=== PATIENT | female | born 1960 | race Caucasian/White ===

== ENCOUNTER 2018-06-03 18:14 | Emergency (ER) | payer BC ==
[2018-06-03] MEDS ORDERED: KETOROLAC 30 MG/ML INJ ONE (18:52)
[2018-06-03] MEDS ORDERED: NA CHLORIDE 0.9% 1,000 ML ONE (18:53)
[2018-06-03] MEDS ORDERED: ONDANSETRON 4 MG/2 ML VIAL ONE (18:53)
[2018-06-03] MEDS ORDERED: DIPHENHYDRAMINE 50 MG/ML VIAL ONE (19:29)
[2018-06-03] MEDS ORDERED: NA CHLORIDE 0.9% 100 ML IV ONE (19:29)
[2018-06-03] MEDS ORDERED: METOCLOPRAMIDE 10 MG/2mL INJ ONE (19:29)
--- NOTE | 2018-06-03 20:05 | RAD REPORT ---
EXAM DESCRIPTION: RAD - Chest Single View - 06/03/2018 7:58 pm CLINICAL HISTORY: Chest pain COMPARISON: None. TECHNIQUE: AP portable chest image was obtained 1948 hours . FINDINGS: Lungs are clear. Heart and vasculature are normal. No measurable pleural effusion and no p neumothorax. No acute bony abnormality seen. No acute aortic findings suspected. IMPRESSION: No acute cardiopulmonary process.
[2018-06-03 20:31] LABS: Absolute Lymphocytes (CBC) 1.8 K/uL (0.7-4.9); Absolute Monocytes 0.7 K/uL (0.1-1.3); Absolute Neutrophil 7.3 K/uL (1.8-8.0); Basophils % 0.4 % (0-1.3); Eosinophils % 1.5 % (0-4.4); Hematocrit 44.9 % (36.0-45.0); Lymphocytes % 17.7 % (15.3-44.8); MCH 31.5 pg (27.0-35.0); MCV 91.3 fL (80-100); MPV 8.4 fL (7.6-11.3); Monocytes % 6.7 % (3.3-12.3); Protime INR 1.03; RBC Red Blood Cell Count 4.92 M/uL (3.86-4.86)
[2018-06-03 20:44] LABS: ALT/SGPT 27 U/L (12-78); AST/SGOT 14 U/L (15-37); Albumin 4.1 g/dL (3.4-5.0); Alkaline Phosphatase 80 U/L (45-117); BUN Blood Urea Nitrogen 10 mg/dL (7-18); Bicarbonate 26 mmol/L (21-32); Bilirubin Direct 0.1 mg/dL (0-0.2); Bilirubin Total 0.9 mg/dL (0.2-1.0); C-Reactive Protein < 2.90 mg/L (<3.00); Glucose Level 82 mg/dL (74-106); Magnesium 2.2 mg/dL (1.8-2.4); NT PRO-BNP 58 pg/mL (<125); Potassium 3.6 mmol/L (3.5-5.1); Protein, Total 7.6 g/dL (6.4-8.2); Sodium Level 137 mmol/L (136-145); Thyroid Stimulating Hormone 0.443 uIU/mL (0.360-3.740); Troponin (Emerg Dept Use Only) < 0.02 ng/mL (0.0-0.045)
--- NOTE | 2018-06-03 21:31 | RAD REPORT ---
EXAM DESCRIPTION: CT - Head angio - 06/03/2018 9:12 pm CLINICAL HISTORY: Blurred vision, left-sided ear and head pain TECHNIQUE: During dynamic enhancement using nonionic IV contrast, axial 1 millimeter thick images of the head were obtained. Sagittal and axial reconstruction images were generated and reviewed. Axial 5 millimeter thick noncontrast images also obtained. All CT scans are performed using dose optimization technique as appropriate and may include automated exposure control or mA/KV adjustment according to patient size. FINDINGS: Noncontrast imaging shows no intracranial hemorrhage, mass, edema or shift of midline str uctures. Ventricles are normal. No cortical edema or sulcal effacement. Patient does have some scatte red areas of diminished attenuation in the cerebral white matter. In the right occipital lobe white m atter there is diminished attenuation that is consistent with an ischemic injury of unknown age. In t his location, patient could have homonymous hemianopia. Correlation is needed with full visual field examination. Major venous sinuses are patent. No significant stenosis, named branch occlusion, vasculitis or other significant vascular finding ashley ntifiable. No aneurysm or vascular malformation seen. IMPRESSION: No hemorrhage or acute cortical based infarction identified. Decreased attenuation in the right occipital lobe white matter could be an acute lesion given the vis ual symptoms. In this location this could the generate a homonymous hemianopia. Correlation is needed with visual field deficits. CT angio head imaging shows no significant finding.
[2018-06-03] MEDS ORDERED: ASPIRIN 81 MG CHEWABLE TABLET ONE (21:56)
[2018-06-03] MEDS ORDERED: FOLIC ACID 5 MG/ML VIAL ONE (21:57)
[2018-06-03] MEDS ORDERED: NA CHLORIDE 0.9% 50 ML IV ONE (21:57)
--- NOTE | 2018-06-03 22:56 | ER ---
Nurse's Notes [facility] Name: Addis Ruvalcaba Age: 58 yrs Sex: Female : 1960 Arrival Date: 06/03/2018 Time: 18:19 Bed 30 Private MD: Diagnosis: CVA Presentation: 06/03 18:21 Presenting complaint: Patient states: Left ear pain since this morning, now having la1 blurry vision in both eyes and back pain in the back of the scalp. Transition of care: patient was not received from another setting of care. Onset of symptoms was June 03, 2018. Risk Assessment: Do you want to hurt yourself or someone else? Patient reports no desire to harm self or others. Initial Sepsis Screen: Does the patient meet any 2 criteria? No. Patient's initial sepsis screen is negative. Does the patient have a suspected source of infection? No. Patient's initial sepsis screen is negative. Care prior to arrival: None. 18:21 Method Of Arrival: Ambulatory la1 18:21 Acuity: ALLA 2 la1 Triage Assessment: 20:50 Headache History: Denies prior headaches. General: Appears in no apparent distress. mg2 comfortable, Behavior is calm, cooperative. Pain: Pain currently is 0 out of 10 on a pain scale. Pain began gradually, Also complains of nausea. Historical: - Allergies: 18:21 Sulfa (Sulfonamide Antibiotics); la1 - PMHx: 18:21 Hypothyroidism; la1 - Immunization history:: Adult Immunizations up to date. - Social history:: Smoking status: Patient uses tobacco products, smokes one-half pack cigarettes per day. - Ebola Screening: : No symptoms or risks identified at this time. - Family history:: not pertinent. Screenin:50 Abuse screen: Denies threats or abuse. Denies injuries from another. Nutritional mg2 screening: No deficits noted. Tuberculosis screening:. Fall Risk IV access (20 points). Assessment: 20:49 Pain: Complains of pain in forehead. Neuro: Level of Consciousness is awake, alert, mg2 obeys commands, Oriented to person, place, time, situation, Reports blurred vision headache. Cardiovascular: Capillary refill < 3 seconds Patient's skin is warm and dry. Respiratory: Airway is patent Respiratory effort is even, unlabored, Respiratory pattern is regular, symmetrical. GI: No signs and/or symptoms were reported involving the gastrointestinal system. : No deficits noted. EENT: No deficits noted. Derm: Skin is intact, is healthy with good turgor, Skin is pink, warm \T\ dry. normal. Musculoskeletal: No signs and/or symptoms reported regarding the musculoskeletal system. 21:06 Reassessment: patient sent to ct scan. mg2 06/04 00:23 Reassessment: Patient appears in no apparent distress at this time. mg2 Vital Signs: 06/03 18:20 BP 171 / 102; Pulse 90; Resp 16; Temp 98.0; Pulse Ox 100% on R/A; Weight 25.4 kg; Pain la1 8/10; 19:33 BP 148 / 84; Pulse 90; Resp 18; Pulse Ox 100% on R/A; Pain 3/10; mg2 20:48 BP 125 / 84; Pulse 89; Resp 18; Pulse Ox 100% on R/A; Pain 0/10; mg2 22:06 BP 151 / 82; Pulse 90; Resp 18; Pulse Ox 100% on R/A; Pain 3/10; mg2 23:04 BP 117 / 61; Pulse 69; Resp 18; Pulse Ox 95% on R/A; Pain 0/10; mg2 ED Course: 18:19 Patient arrived in ED. sb2 18:21 Arm band placed on left wrist. la1 18:22 Triage completed. la1 18:33 Salas Kowalski MD is Attending Physician. zoë 18:42 EKG done, by ED staff, reviewed by Salas Kowalski MD. Initial lab(s) drawn, by nd. jb1 Inserted saline lock: 22 gauge in right antecubital area, using aseptic technique. Blood collected. 18:43 Jesús Bagley, JARON is Primary Nurse. mg2 19:40 Seth Ocampo PA is PHCP. jmm 20:00 Chest Single View In Process Unspecified. EDMS 20:50 Patient has correct armband on for positive identification. mg2 20:50 No provider procedures requiring assistance completed. mg2 21:10 CT completed. Patient moved to CT via wheelchair. Patient moved back from CT. cw1 22:10 Ultrasound completed. Patient tolerated well. sg3 06/04 00:23 Patient transferred, IV remains in place. mg2 Administered Medications: 06/03 19:16 Drug: TORadol 30 mg Route: IVP; Site: right forearm; mg2 22:05 Follow up: Response: No adverse reaction; Marked relief of symptoms mg2 19:16 Drug: Zofran 4 mg Route: IVP; Site: right forearm; mg2 22:05 Follow up: Response: No adverse reaction; Marked relief of symptoms mg2 19:17 Drug: NS 0.9% 1000 ml Route: IV; Rate: 1 bolus; Site: right forearm; mg2 22:05 Follow up: Response: No adverse reaction; IV Status: Completed infusion mg2 19:32 Drug: Reglan 10 mg Route: IVP; Site: right forearm; mg2 22:05 Follow up: Response: No adverse reaction; Marked relief of symptoms mg2 19:32 Drug: Benadryl 25 mg Route: IVP; Site: right forearm; mg2 22:05 Follow up: Response: No adverse reaction; Marked relief of symptoms mg2 22:04 Drug: foLIC Acid 1 mg Route: IVPB; Site: right antecubital; mg2 23:05 Follow up: Response: No adverse reaction; IV Status: Completed infusion mg2 22:04 Drug: Aspirin Chewable Tablet 324 mg Route: PO; mg2 23:05 Follow up: Response: No adverse reaction; Marked relief of symptoms mg2 Outcome: 22:56 ER care complete, transfer ordered by MD. dubois 06/04 00:23 Transferred by ground EMS to [facility], Transfer form completed. mg2 Condition: stable Instructed on the need for transfer, Demonstrated understanding of instructions. 00:24 Patient left the ED. mg2 Signatures: Dispatcher [employer] EDMS Tim Moreno jb1 Salas Kowalski MD MD cha Mickail, Joel, PA PA Brandi Alcocer cw1 Robert Ramsey RN RN la1 Marycruz Chen3 Leola Tillman2 Jesús Bagley RN RN mg2 Corrections: (The following items were deleted from the chart) 06/03 18:25 18:21 Acuity: ALLA 3 la1 la1
--- NOTE | 2018-06-03 22:57 | EDPHYS ---
Physician Documentation [facility] Name: Addis Ruvalcaba Age: 58 yrs Sex: Female : 1960 Arrival Date: 06/03/2018 Time: 18:19 Bed 30 Private MD: ED Physician Salas Kowalski HPI: 06/03 18:40 This 58 yrs old Female presents to ER via Ambulatory with complaints of zoë Blurred Vision, Headache. 18:40 The patient complains of pain to the forehead, left cheek and left eye. The patient zoë describes the headache as aching. Onset: The symptoms/episode began/occurred today. Associated signs and symptoms: The patient has no apparent associated signs or symptoms. Severity of symptoms: At its worst the pain was moderate, in the emergency department the pain is unchanged. Headache History: Denies prior headaches. The symptoms are alleviated by nothing. the symptoms are aggravated by lights, movement, noise. The patient has not experienced similar symptoms in the past. Historical: - Allergies: 18:21 Sulfa (Sulfonamide Antibiotics); la1 - PMHx: 18:21 Hypothyroidism; la1 - Immunization history:: Adult Immunizations up to date. - Social history:: Smoking status: Patient uses tobacco products, smokes one-half pack cigarettes per day. - Ebola Screening: : No symptoms or risks identified at this time. - Family history:: not pertinent. ROS: 18:40 Constitutional: Negative for fever, chills, and weight loss, Eyes: Negative for injury, zoë pain, redness, and discharge, ENT: Negative for injury, pain, and discharge, Neck: Negative for injury, pain, and swelling, Cardiovascular: Negative for chest pain, palpitations, and edema, Respiratory: Negative for shortness of breath, cough, wheezing, and pleuritic chest pain, Abdomen/GI: Negative for abdominal pain, nausea, vomiting, diarrhea, and constipation, Back: Negative for injury and pain, : Negative for injury, bleeding, discharge, and swelling, MS/Extremity: Negative for injury and deformity, Skin: Negative for injury, rash, and discoloration, Neuro: Negative for headache, weakness, numbness, tingling, and seizure, Psych: Negative for depression, anxiety, suicide ideation, homicidal ideation, and hallucinations, Allergy/Immunology: Negative for hives, rash, and allergies, Endocrine: Negative for neck swelling, polydipsia, polyuria, polyphagia, and marked weight changes, Hematologic/Lymphatic: Negative for swollen nodes, abnormal bleeding, and unusual bruising. 18:40 Neck: Negative for pain with movement, pain at rest. Exam: 18:40 Constitutional: This is a well developed, well nourished patient who is awake, alert, zoë and in no acute distress. Head/Face: Normocephalic, atraumatic. Eyes: Pupils equal round and reactive to light, extra-ocular motions intact. Lids and lashes normal. Conjunctiva and sclera are non-icteric and not injected. Cornea within normal limits. Periorbital areas with no swelling, redness, or edema. ENT: Nares patent. No nasal discharge, no septal abnormalities noted. Tympanic membranes are normal and external auditory canals are clear. Oropharynx with no redness, swelling, or masses, exudates, or evidence of obstruction, uvula midline. Mucous membranes moist. Neck: Trachea midline, no thyromegaly or masses palpated, and no cervical lymphadenopathy. Supple, full range of motion without nuchal rigidity, or vertebral point tenderness. No Meningismus. Chest/axilla: Normal chest wall appearance and motion. Nontender with no deformity. No lesions are appreciated. Cardiovascular: Regular rate and rhythm with a normal S1 and S2. No gallops, murmurs, or rubs. Normal PMI, no JVD. No pulse deficits. Respiratory: Lungs have equal breath sounds bilaterally, clear to auscultation and percussion. No rales, rhonchi or wheezes noted. No increased work of breathing, no retractions or nasal flaring. Abdomen/GI: Soft, non-tender, with normal bowel sounds. No distension or tympany. No guarding or rebound. No evidence of tenderness throughout. Back: No spinal tenderness. No costovertebral tenderness. Full range of motion. Skin: Warm, dry with normal turgor. Normal color with no rashes, no lesions, and no evidence of cellulitis. MS/ Extremity: Pulses equal, no cyanosis. Neurovascular intact. Full, normal range of motion. Neuro: Awake and alert, GCS 15, oriented to person, place, time, and situation. Cranial nerves II-XII grossly intact. Motor strength 5/5 in all extremities. Sensory grossly intact. Cerebellar exam normal. Normal gait. Psych: Awake, alert, with orientation to person, place and time. Behavior, mood, and affect are within normal limits. 18:40 Neck: ROM/movement: limited range of motion, is not appreciated, Meningeal signs: are not present, Kernig's sign is negative, Brudzinski's sign is negative, nuchal rigidity, is not appreciated. 18:46 Musculoskeletal/extremity: DVT Exam: No signs of deep vein thrombosis. no pain, no zoë swelling, no tenderness, negative Homans' sign noted on exam, no appreciated bluish discoloration, no erythema, no increased warmth. Vital Signs: 18:20 BP 171 / 102; Pulse 90; Resp 16; Temp 98.0; Pulse Ox 100% on R/A; Weight 25.4 kg; Pain la1 8/10; 19:33 BP 148 / 84; Pulse 90; Resp 18; Pulse Ox 100% on R/A; Pain 3/10; mg2 20:48 BP 125 / 84; Pulse 89; Resp 18; Pulse Ox 100% on R/A; Pain 0/10; mg2 22:06 BP 151 / 82; Pulse 90; Resp 18; Pulse Ox 100% on R/A; Pain 3/10; mg2 23:04 BP 117 / 61; Pulse 69; Resp 18; Pulse Ox 95% on R/A; Pain 0/10; mg2 MDM: 18:33 Patient medically screened. [facility] 18:44 Data reviewed: vital signs, nurses notes, lab test result(s), EKG, radiologic studies, [facility] CT scan, doppler, plain films. 22:48 Counseling: I had a detailed discussion with the patient and/or guardian regarding: the [facility] historical points, exam findings, and any diagnostic results supporting the discharge/admit diagnosis, lab results, radiology results, to return to the emergency department if symptoms worsen or persist or if there are any questions or concerns that arise at home. ED course: I discussed the patient with Dr. Ramirez whom accept transfer. . 06/03 18:40 Order name: Basic Metabolic Panel; Complete Time: 20:58 [facility] 06/03 18:40 Order name: CBC with Diff; Complete Time: 21:19 [facility] 06/03 18:40 Order name: LFT's; Complete Time: 20:58 [facility] 06/03 18:40 Order name: Magnesium; Complete Time: 20:58 [facility] 06/03 18:40 Order name: NT PRO-BNP; Complete Time: 20:58 [facility] 06/03 18:40 Order name: PT-INR; Complete Time: 20:43 [facility] 06/03 18:40 Order name: Troponin (emerg Dept Use Only); Complete Time: 20:58 [facility] 06/03 18:40 Order name: US Carotid Artery Bilateral [facility] 06/03 18:40 Order name: Sed Rate; Complete Time: 21:19 [facility] 06/03 18:40 Order name: CRP; Complete Time: 20:58 [facility] 06/03 18:46 Order name: TSH; Complete Time: 20:58 [facility] 06/03 20:00 Order name: Chest Single View; Complete Time: 20:31 EDMS 06/03 18:40 Order name: EKG; Complete Time: 19:36 [facility] 06/03 18:40 Order name: Cardiac monitoring; Complete Time: 18:43 [facility] 06/03 18:40 Order name: EKG - Nurse/Tech; Complete Time: 18:43 [facility] 06/03 18:40 Order name: IV Saline Lock; Complete Time: 18:43 [facility] 06/03 18:40 Order name: Labs collected and sent; Complete Time: 18:43 [facility] 06/03 18:40 Order name: O2 Per Protocol; Complete Time: 18:43 [facility] 06/03 18:40 Order name: O2 Sat Monitoring; Complete Time: 18:43 [facility] 06/03 18:40 Order name: Oxygen; Complete Time: 19:33 [facility] 06/03 21:32 Order name: CT; Complete Time: 21:38 EDMS Administered Medications: 19:16 Drug: TORadol 30 mg Route: IVP; Site: right forearm; mg2 22:05 Follow up: Response: No adverse reaction; Marked relief of symptoms mg2 19:16 Drug: Zofran 4 mg Route: IVP; Site: right forearm; mg2 22:05 Follow up: Response: No adverse reaction; Marked relief of symptoms mg2 19:17 Drug: NS 0.9% 1000 ml Route: IV; Rate: 1 bolus; Site: right forearm; mg2 22:05 Follow up: Response: No adverse reaction; IV Status: Completed infusion mg2 19:32 Drug: Reglan 10 mg Route: IVP; Site: right forearm; mg2 22:05 Follow up: Response: No adverse reaction; Marked relief of symptoms mg2 19:32 Drug: Benadryl 25 mg Route: IVP; Site: right forearm; mg2 22:05 Follow up: Response: No adverse reaction; Marked relief of symptoms mg2 22:04 Drug: foLIC Acid 1 mg Route: IVPB; Site: right antecubital; mg2 23:05 Follow up: Response: No adverse reaction; IV Status: Completed infusion mg2 22:04 Drug: Aspirin Chewable Tablet 324 mg Route: PO; mg2 23:05 Follow up: Response: No adverse reaction; Marked relief of symptoms mg2 Disposition: 06/04 07:31 Co-signature as Attending Physician, Salas Kowalski MD I agree with the assessment and [facility] plan of care. Disposition: 06/03/18 22:56 Transfer ordered to [facility]. Diagnosis is CVA. - Reason for transfer: Higher level of care. - Accepting physician is Ashley. - Condition is Stable. - Problem is new. - Symptoms have improved. Signatures: Dispatcher [employer] [facility] Salas Kowalski MD MD cha Mickail, Joel, PA PA [facility] Robert Ramsey, RN RN la1 Jesús Bagley RN RN mg2 Corrections: (The following items were deleted from the chart) 06/03 19:54 19:35 Chest Single View+RAD.RAD.[email or web address] ordered. [facility] 06/04 00:24 06/03 22:56 06/03/2018 22:56 Transfer ordered to [facility]. mg2 Diagnosis is CVA. Reason for transfer: Higher level of care. Accepting physician is Ashley. Condition is Stable. Problem is new. Symptoms have improved. miki
--- NOTE | 2018-06-04 07:39 | EKG ---
Test Date: 2018-06-03 Test Time: 18:30:39 Cloth Cutting Inspector: NEFTALY MEASUREMENT RESULTS: Intervals: Rate: 75 NE: 178 QRSD: 80 QT: 388 QTc: 433 Means: P: 61 NE: 178 QRS: 9 T: 49 INTERPRETIVE STATEMENTS: Normal sinus rhythm Normal ECG Compared to ECG 06/05/2015 11:54:41 Sinus bradycardia no longer present Sinus arrhythmia no longer present Electronically Signed On 06-04-18 07:38:38 MANAGEMENT DEPARTMENT CHAIR by Ant Ivory
--- NOTE | 2018-06-04 08:18 | RAD REPORT ---
EXAM DESCRIPTION: USCarotid Artery Ofzzotngu92/2/2018 10:09 pm CLINICAL HISTORY: Blurred vision COMPARISON: None FINDINGS: The velocity of the right internal carotid artery equals 58 cm/sec. The right ICA/CCA rati o 0.6 The velocity of the left internal carotid artery equals 80. Cm/sec. The left ICA/CCA ratio 1.2 Minimal plaque is present within the carotid arteries. The vertebral arteries demonstrate antegrade flow IMPRESSION: Minimal plaque within the carotid arteries without evidence of a hemodynamically signifi cant stenosis NASCET criteria used. Mild 0-49% stenosis Moderate 50-69% stenosis Severe 70-99% stenosis
== END 2018-06-04 00:24 | disposition short-term general hospital (02) ==
LOC: ER 18:14
DX: I63.9 Cerebral infarction, unspecified (principal); E03.9 Hypothyroidism, unspecified; F17.210 Nicotine dependence, cigarettes, uncomplicated; Z88.2 Allergy status to sulfonamides
CPT/HCPCS: 36415; 70496; 71045; 80048; 80076; 83735; 83880; 84443; 84484; 85025; 85610; 85652; 86140; 93005; 93880; 96361; 96365; 96375; 99285; J2405; J2765; J7030; Q9967